=== PATIENT | male | born 1955 | race Caucasian/White ===

== ENCOUNTER → 2021-12-24 | Outpatient (CLI) | payer MEDICARE | LOC: WCC 07:40 | DX: L97.812 Non-pressure chronic ulcer of other part of right lower leg with fat layer exposed (principal); E11.628 Type 2 diabetes mellitus with other skin complications; I25.10 Atherosclerotic heart disease of native coronary artery without angina pectoris; I11.0 Hypertensive heart disease with heart failure; I50.9 Heart failure, unspecified; J44.9 Chronic obstructive pulmonary disease, unspecified; I83.018 Varicose veins of right lower extremity with ulcer other part of lower leg; E11.36 Type 2 diabetes mellitus with diabetic cataract; H26.9 Unspecified cataract; I25.2 Old myocardial infarction; M19.90 Unspecified osteoarthritis, unspecified site; E11.40 Type 2 diabetes mellitus with diabetic neuropathy, unspecified; Z72.0 Tobacco use ==

== ENCOUNTER → 2022-01-01 | Outpatient (CLI) | payer MEDICARE | LOC: WCC 07:52 | DX: I87.2 Venous insufficiency (chronic) (peripheral) (principal); L97.812 Non-pressure chronic ulcer of other part of right lower leg with fat layer exposed; E11.628 Type 2 diabetes mellitus with other skin complications; I11.0 Hypertensive heart disease with heart failure; I50.9 Heart failure, unspecified; I25.10 Atherosclerotic heart disease of native coronary artery without angina pectoris; J44.9 Chronic obstructive pulmonary disease, unspecified; I83.018 Varicose veins of right lower extremity with ulcer other part of lower leg; E11.36 Type 2 diabetes mellitus with diabetic cataract; H26.9 Unspecified cataract; I25.2 Old myocardial infarction; E11.40 Type 2 diabetes mellitus with diabetic neuropathy, unspecified; Z72.0 Tobacco use ==

== ENCOUNTER → 2022-01-06 | Outpatient (CLI) | payer MEDICARE | LOC: WCC 07:48 | DX: I87.2 Venous insufficiency (chronic) (peripheral) (principal); E11.622 Type 2 diabetes mellitus with other skin ulcer; L97.919 Non-pressure chronic ulcer of unspecified part of right lower leg with unspecified severity; I25.10 Atherosclerotic heart disease of native coronary artery without angina pectoris; I50.9 Heart failure, unspecified; J44.9 Chronic obstructive pulmonary disease, unspecified; Z72.0 Tobacco use | CPT/HCPCS: G0463 ==

== ENCOUNTER → 2022-01-22 | Outpatient (CLI) | payer MEDICARE ==
[~2022-01-22] MED LIST: ATORVASTATIN CA80 MG PO; CHLORTHALIDONE50 MG PO; CYCLOBENZAPRINE10 MG PO; GABAPENTIN600 MG PO; LOW DOSE ASPIRI81 MG PO; MELOXICAM15 MG PO; METFORMIN HCL1000 MG PO; METOPROLOL SUC100 MG PO; OMEPRAZOLE20 MG PO; PERCOCET 10-321 EACH PO; VITAMIN D325 MCG PO; ZINC50 M1 PO
[2022-01-22 09:10] LABS: HEMOGLOBIN 16.7 gm/dl (14.0-17.5); RED BLOOD COUNT 5.29 M/UL (4.20-5.50); WHITE BLOOD COUNT 7.4 K/UL (4.5-11.0)
[2022-01-22 09:46] LABS: BUN/CREATININE RATIO 24 (0-10)
== END ==
LOC: OPSV2 08:00 → EDSTATUS 08:00 → OPSV2 08:17
PROVIDERS: Orthopaedic Surgery
DX: Z01.818 Encounter for other preprocedural examination (principal); M16.11 Unilateral primary osteoarthritis, right hip
CPT/HCPCS: 71046; 80048; 85027; 85610; 85730; 93005

== ENCOUNTER → 2022-01-28 | Outpatient (CLI) | payer MEDICARE | LOC: KOH-I 15:00 | DX: I73.9 Peripheral vascular disease, unspecified (principal) | CPT/HCPCS: 93925 ==

== ENCOUNTER → 2022-02-10 | Outpatient (CLI) | payer MEDICARE ==
[~2022-02-10] MED LIST changes: +ELIQUIS2.5 MG PO; +HYDROXYZINE HCL25 MG PO; +MIRTAZAPINE15 MG PO; +NITROGLYCERIN0.4 MG SL; +ROXICODONE15 MG PO; +TRELEGY ELLIPT1 EACH INH
[2022-02-10 12:04] LABS: BUN/CREATININE RATIO 19 (0-10)
== END ==
LOC: LAB 10:22
PROVIDERS: Orthopaedic Surgery
DX: Z01.812 Encounter for preprocedural laboratory examination (principal)
CPT/HCPCS: 36415; 80048; 86850; 86900; 86901

== ENCOUNTER 2022-02-11 05:19 | Day surgery (SDC) | payer MEDICARE ==
[~2022-02-11] VITALS: Ht 182.9 cm; Wt 119.3 kg
[~2022-02-11 05:19] MED LIST changes: -ELIQUIS2.5 MG PO; -HYDROXYZINE HCL25 MG PO; -MIRTAZAPINE15 MG PO; -NITROGLYCERIN0.4 MG SL; -ROXICODONE15 MG PO; -TRELEGY ELLIPT1 EACH INH
[2022-02-11] MEDS ORDERED: HYDROXYZINE HCL25 MG PO (06:23)
[2022-02-11] MEDS ORDERED: MIRTAZAPINE15 MG PO (06:23)
[2022-02-11] MEDS ORDERED: TRELEGY ELLIPT1 EACH INH (06:24)
[2022-02-11] MEDS ORDERED: ROXICODONE15 MG PO (08:06)
[2022-02-11] MEDS ORDERED: NITROGLYCERIN0.4 MG SL (13:54)
[2022-02-11] MEDS ORDERED: ELIQUIS2.5 MG PO (13:55)
[2022-02-12 03:28] LABS: HEMOGLOBIN 12.8 gm/dl (14.0-17.5); RED BLOOD COUNT 4.13 M/UL (4.20-5.50); WHITE BLOOD COUNT 18.1 K/UL (4.5-11.0)
[2022-02-12 03:55] LABS: BUN/CREATININE RATIO 25 (0-10)
== END 2022-02-12 13:54 | disposition home or self-care (01) ==
LOC: OR 05:19 → CCU 11:47 → OR 02-12 13:54
PROVIDERS: Internal Medicine; Orthopaedic Surgery
DX: M16.11 Unilateral primary osteoarthritis, right hip (principal); D72.829 Elevated white blood cell count, unspecified; I11.9 Hypertensive heart disease without heart failure; E78.5 Hyperlipidemia, unspecified; J44.9 Chronic obstructive pulmonary disease, unspecified; E11.9 Type 2 diabetes mellitus without complications; K21.9 Gastro-esophageal reflux disease without esophagitis; F17.210 Nicotine dependence, cigarettes, uncomplicated; Z79.82 Long term (current) use of aspirin; Z79.84 Long term (current) use of oral hypoglycemic drugs; Z79.899 Other long term (current) drug therapy
CPT/HCPCS: 73501; 73502; 76000; 80048; 82962; 83540; 83550; 83735; 85027; 94640; 94760; 97110-GP-CQ; 97116-GP-CQ; 97162; 97166; 97530; 97535; C1776; J0690; J1100; J1170; J1200; J1885; J2250; J2274; J2405; J2704; J2710; J3010; J3370; J3475; J7050